=== PATIENT | female | born 1990 | race Caucasian/White ===

== ENCOUNTER 2020-12-11 19:26 | Emergency (ER) | payer OTHER | END 2020-12-11 23:15 | disposition home or self-care (01) | LOC: FER 19:26 | DX: S92.351A Displaced fracture of fifth metatarsal bone, right foot, initial encounter for closed fracture (principal); S00.01XA Abrasion of scalp, initial encounter; Y04.2XXA Assault by strike against or bumped into by another person, initial encounter; Y92.009 Unspecified place in unspecified non-institutional (private) residence as the place of occurrence of the external cause | CPT/HCPCS: 70450; 72125; 73560; 73610; 73630 ==

== ENCOUNTER 2020-12-14 11:06 | Emergency (ER) | payer OTHER ==
[2020-12-14] MEDS ORDERED: NORCO 5-325 TA1 EACH PO (13:10)
== END 2020-12-14 13:30 | disposition home or self-care (01) ==
LOC: FER 11:06
DX: S92.354A Nondisplaced fracture of fifth metatarsal bone, right foot, initial encounter for closed fracture (principal); X58.XXXA Exposure to other specified factors, initial encounter; Y92.046 Garden or yard of boarding-house as the place of occurrence of the external cause
CPT/HCPCS: 73630